=== PATIENT | male | born 1955 | race African-American/Black ===

== ENCOUNTER 2017-03-22 09:02 | Day surgery (SDC) | payer OTHER ==
[2017-03-18 14:03] VITALS: BMI 31.4
[2017-03-22] MEDS ORDERED: PROPOFOL 20 ML ONE ×2 (09:26)
[2017-03-22 11:32] VITALS: BP 135/68; PULSE 78; TEMP 98.5
== END 2017-03-22 11:00 | disposition home or self-care (01) ==
LOC: FASU-ENDO 09:02
PROVIDERS: ATTEND Internal Medicine Gastroenterology
PROC: 0DJD8ZZ Inspection of Lower Intestinal Tract, Via Natural or Artificial Opening Endoscopic (ICD-10-PCS; principal; 2017-03-22 09:42)
DX: Z12.11 Encounter for screening for malignant neoplasm of colon (principal); K57.30 Diverticulosis of large intestine without perforation or abscess without bleeding